=== PATIENT | male | born 1975 | race Asian ===

== ENCOUNTER 2020-09-27 14:12 | Emergency (ER) | payer OTHER ==
[~2020-09-27] VITALS: Ht 162.6 cm; Wt 105.2 kg
[2020-09-27 15:31] VITALS: BP 135/97
== END 2020-09-27 17:09 | disposition home or self-care (01) ==
LOC: ED 14:12
DX: S29.011A Strain of muscle and tendon of front wall of thorax, initial encounter (principal); X58.XXXA Exposure to other specified factors, initial encounter; Y93.89 Activity, other specified; Y92.89 Other specified places as the place of occurrence of the external cause; Y99.8 Other external cause status